=== PATIENT | male | born 1980 | race Native Hawaiian/Other Pacific Islander ===

== ENCOUNTER 2019-08-20 20:51 | Emergency (ER) | payer BC, OTHER ==
[2019-08-20 21:15] VITALS: BP 114/65; PULSE 72; RESP 16; TEMP 98.2
[2019-08-20] MEDS ORDERED: LIDOCAINE 1% INJ 10MG/ML (20 ML MDV) SQ ONE (22:17)
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
== END 2019-08-20 23:10 | disposition home or self-care (01) ==
LOC: EC 20:51
DX: S01.511A Laceration without foreign body of lip, initial encounter (principal); K08.89 Other specified disorders of teeth and supporting structures; Z53.20 Procedure and treatment not carried out because of patient's decision for unspecified reasons; Z87.891 Personal history of nicotine dependence; V86.55XA Driver of 3- or 4- wheeled all-terrain vehicle (ATV) injured in nontraffic accident, initial encounter; Y92.410 Unspecified street and highway as the place of occurrence of the external cause; Y93.55 Activity, bike riding
CPT/HCPCS: 99282; 12011; J2001

== ENCOUNTER 2020-01-22 13:19 | Emergency (ER) | payer OTHER ==
[2020-01-22 13:32] VITALS: BP 121/72; PULSE 73; TEMP 99.4
[2020-01-22 13:57] VITALS: RESP 18
[2020-01-22] MEDS ORDERED: ACETAMINOPHEN TAB 500 MG TAB PO STA (14:10)
--- NOTE | 2020-01-22 14:31 | XR ---
EXAMINATION TYPE: XR chest 2V DATE OF EXAM: 01/22/2020 COMPARISON: 10/24/2012 HISTORY: Cough, congestion, and fever TECHNIQUE: Frontal and lateral views of the chest are obtained. FINDINGS: There is no focal air space opacity, pleural effusion, or pneumothorax seen. The cardiac silhouette size is within normal limits. The osseous structures are intact. IMPRESSION: No acute cardiopulmonary process.
--- NOTE | 2020-01-22 14:43 | ED ---
General Adult HPI - General Chief complaint: Upper Respiratory Infection Stated complaint: head/chest congestion/cough Time Seen by Provider: 01/22/20 14:04 Source: patient, RN notes reviewed Mode of arrival: ambulatory Limitations: no limitations - History of Present Illness Initial comments: 39-year-old male with a past medical history of depression and anxiety presents to the emergency department for a chief complaint of cough. Patient has had a cough and fever for 3 days. Denies shortness of breath. Patient does admit to smoking, denies asthma or COPD history. States cough is nonproductive. Patient denies any domestic or foreign travel. No immunocompromising conditions. Patient has no other complaints at this time including shortness of breath, chest pain, abdominal pain, nausea or vomiting, headache, or visual changes. - Related Data Home Medications Medication Instructions Recorded Confirmed No Known Home Medications 08/20/19 08/20/19 Allergies Allergy/AdvReac Type Severity Reaction Status Date / Time No Known Allergies Allergy Verified 01/22/20 13:32 Review of Systems ROS Statement: Those systems with pertinent positive or pertinent negative responses have been documented in the HPI. ROS Other: All systems not noted in ROS Statement are negative. Past Medical History Past Medical History: No Reported History Additional Past Medical History / Comment(s): depression and anxiety History of Any Multi-Drug Resistant Organisms: None Reported Past Surgical History: No Surgical Hx Reported Past Psychological History: Anxiety, Depression Smoking Status: Former smoker Past Alcohol Use History: Occasional Past Drug Use History: None Reported General Exam Limitations: no limitations General appearance: alert, in no apparent distress Head exam: Present: atraumatic, normocephalic, normal inspection Eye exam: Present: normal appearance, PERRL, EOMI. Absent: scleral icterus, conjunctival injection, periorbital swelling ENT exam: Present: normal exam, normal oropharynx, mucous membranes moist, TM's normal bilaterally, normal external ear exam Neck exam: Present: normal inspection, full ROM. Absent: tenderness, meningismus, lymphadenopathy Respiratory exam: Present: normal lung sounds bilaterally. Absent: respiratory distress, wheezes, rales, rhonchi, stridor Cardiovascular Exam: Present: regular rate, normal rhythm, normal heart sounds. Absent: systolic murmur, diastolic murmur, rubs, gallop, clicks GI/Abdominal exam: Present: soft, normal bowel sounds. Absent: distended, tenderness, guarding, rebound, rigid Course Vital Signs 01/22/20 01/22/20 13:30 13:56 Temperature 99.4 F Pulse Rate 73 Respiratory 16 18 Rate Blood Pressure 121/72 O2 Sat by Pulse 97 Oximetry Medical Decision Making - Medical Decision Making Patient is well-appearing, sitting up in bed. Vitals are stable although he does have a low-grade fever of 100.3, given Tylenol. Has not had any antipyretics prior. Influenza A is detected. Chest x-ray is negative for acute cardiopulmonary process. Patient has had symptoms for 3 days and is therefore outside of the window for Tamiflu. I discussed Motrin and Tylenol for fever. Discussed follow-up with his doctor in one to 2 days. He will return for any worsening symptoms. He is otherwise able to return to work after he has 24 hours fever free. - Lab Data Lab Results 01/22/20 Range/Units 13:58 Influenza Type A RNA Detected H (Not Detectd) Influenza Type B (PCR) Not Detected (Not Detectd) Disposition Clinical Impression: Influenza A Disposition: HOME SELF-CARE Condition: Good Instructions (If sedation given, give patient instructions): Influenza (ED) Additional Instructions: Take Motrin and Tylenol alternating up to every 3 hours as needed for fever. You may also take [id number] cold and flu medications that make sure you are not taking too much Motrin or Tylenol if these are included. Drink plenty of fluids. Please follow up with primary care in 1-2 days. Please return to the emergency department for any worsening symptoms. Is patient prescribed a controlled substance at d/c from ED?: No Referrals: Isai Birch MD [Primary Care Provider] - 1-2 days Time of Disposition: 14:42
== END 2020-01-22 14:50 | disposition home or self-care (01) ==
LOC: EC 13:19
DX: J10.1 Influenza due to other identified influenza virus with other respiratory manifestations (principal); F17.200 Nicotine dependence, unspecified, uncomplicated
CPT/HCPCS: 71046; 87502; 99283

== ENCOUNTER 2023-05-02 23:36 | Emergency (ER) | payer OTHER ==
[2023-05-02 23:49] VITALS: TEMP 98.3
--- NOTE | 2023-05-03 01:35 | ED ---
Abdominal Pain HPI - General Chief Complaint: Abdominal Pain Stated Complaint: Painful Lump on Abdomen Time Seen by Provider: 05/03/23 01:02 Source: patient, RN notes reviewed, old records reviewed Mode of arrival: ambulatory Limitations: no limitations - History of Present Illness Initial Comments: Patient noticed a bump just below his belly button 2 days ago after running. No abdominal pain at this time. Did have some nausea but no vomiting. Normal bowel movements. No fevers. No previous surgeries or medical history. Does vape. Complaint: abdominal pain Location: periumbilical Radiation: none Severity scale (1-10): 0 Consistency: intermittent Associated Symptoms: denies other symptoms - Related Data Home Medications Medication Instructions Recorded Confirmed No Known Home Medications 08/20/19 08/20/19 Allergies Allergy/AdvReac Type Severity Reaction Status Date / Time No Known Allergies Allergy Verified 05/02/23 23:49 Review of Systems ROS Statement: Those systems with pertinent positive or pertinent negative responses have been documented in the HPI. ROS Other: All systems not noted in ROS Statement are negative. Past Medical History Past Medical History: No Reported History Additional Past Medical History / Comment(s): depression and anxiety History of Any Multi-Drug Resistant Organisms: None Reported Past Surgical History: No Surgical Hx Reported Past Psychological History: Anxiety, Depression Smoking Status: Former smoker, Vaper Past Alcohol Use History: Occasional Past Drug Use History: None Reported General Exam Limitations: no limitations General appearance: alert, in no apparent distress Head exam: Present: atraumatic Eye exam: Present: normal appearance ENT exam: Present: mucous membranes moist Neck exam: Present: full ROM. Absent: tenderness, meningismus Respiratory exam: Present: normal lung sounds bilaterally. Absent: respiratory distress, accessory muscle use Cardiovascular Exam: Present: regular rate GI/Abdominal exam: Present: soft, tenderness (mild), hernia (periumbilical). Absent: distended, guarding, rebound, rigid Extremities exam: Present: normal inspection, full ROM, normal capillary refill. Absent: tenderness Neurological exam: Present: alert, oriented X3 Psychiatric exam: Present: normal affect, normal mood Skin exam: Present: warm, dry, normal color. Absent: cyanosis, diaphoretic, petechiae, pallor Course Vital Signs 05/02/23 05/03/23 23:45 03:41 Temperature 98.3 F Pulse Rate 64 43 L Respiratory 20 12 Rate Blood Pressure 129/78 110/70 O2 Sat by Pulse 98 97 Oximetry Medical Decision Making - Medical Decision Making Was pt. sent in by a medical professional or institution (, [facility], BLOWING ENGINEER, urgent care, hospital, or residential...) When possible be specific @ -No Did you speak to anyone other than the patient for history (EMS, parent, family, police, friend...)? What history was obtained from this source @ -No Did you review nursing and triage notes (agree or disagree)? Why? @ -I reviewed and agree with nursing and triage notes Were old charts reviewed (outside hosp., previous admission, EMS record, old EKG, old radiological studies, urgent care reports/EKG's, residential records)? Report findings @ -No old charts were reviewed Differential Diagnosis (chest pain, altered mental status, abdominal pain women, abdominal pain men, vaginal bleeding, weakness, fever, dyspnea, syncope, headache, dizziness, GI bleed, back pain, seizure, CVA, palpatations, mental health, musculoskeletal)? @ -Differential Abdominal Pain Men: Appendicitis, cholecystitis, diverticulosis, ischemic bowel, pancreatitis, hepatitis, UTI, gastroenteritis, AAA, incarcerated hernia, bowel obstruction, constipation, inflammatory bowel, hepatitis, peptic ulcer disease, splenic infarction, perforated viscus, testicular torsion, this is not meant to be an all-inclusive list EKG interpreted by me (3pts min.). @ -n/a X-rays interpreted by me (1pt min.). @ -yes KUB x-ray interpreted by me shows no evidence of obstruction. CT interpreted by me (1pt min.). @ -None done U/S interpreted by me (1pt. min.). @ -None done What testing was considered but not performed or refused? (CT, X-rays, U/S, labs)? Why? @ -None What meds were considered but not given or refused? Why? @ -None Did you discuss the management of the patient with other professionals (professionals i.e. [facility] Avalos, BLOWING ENGINEER, lab, RT, psych nurse, social worker assistant, screwhead stoner and polisher, teacher, risk officer, mental health case manager)? Give summary @ -No Was smoking cessation discussed for >3mins.? @ -yes Was critical care preformed (if so, how long)? @ -No Were there social determinants of health that impacted care today? How? (Homelessness, low income, unemployed, alcoholism, drug addiction, transportation, low edu. Level, literacy, decrease access to med. care, intermediate, rehab)? @ -No Was there de-escalation of care discussed even if they declined (Discuss DNR or withdrawal of care, Hospice)? DNR status @ -No What co-morbidities impacted this encounter? (DM, HTN, Smoking, COPD, CAD, Cancer, CVA, ARF, Chemo, Hep., AIDS, mental health diagnosis, sleep apnea, morbid obesity)? @ -Anxiety, depression, smoker Was patient admitted / discharged? Hospital course, mention meds given and route, prescriptions, significant lab abnormalities, going to OR and other pertinent info. @ -Discharged Patient noticed a bump just below his belly button 2 days ago after running. No abdominal pain at this time. Did have some nausea but no vomiting. Normal bowel movements. No fevers. No previous surgeries or medical history. On physical exam abdomen soft and nontender. There is a small periumbilical hernia that is minimally tender. Radiologist interpretation nonspecific nonobstructive bowel gas pattern may represent normal variation or mild enteritis. Patient directed to return to the emergency room with any new or concerning symptoms. Strict return parameters were discussed. Given referral to surgery and directed to follow up with his primary care doctor this week. He is agreeable to this plan of care. Case discussed with Dr. Sethi. Undiagnosed new problem with uncertain prognosis? @ -No Drug Therapy requiring intensive monitoring for toxicity (Heparin, Nitro, Insulin, Cardizem)? @ -No Were any procedures done? @ -No Diagnosis/symptom? @ -Umbilical hernia Acute, or Chronic, or Acute on Chronic? @ -Acute Uncomplicated (without systemic symptoms) or Complicated (systemic symptoms)? @ -Uncomplicated Side effects of treatment? @ -No Exacerbation, Progression, or Severe Exacerbation? @ -No Poses a threat to life or bodily function? How? (Chest pain, [place], [place], pneumonia, PE, COPD, DKA, ARF, appy, cholecystitis, CVA, Diverticulitis, Homicidal, Suicidal, threat to staff... and all critical care pts) @ -No Disposition Clinical Impression: Umbilical hernia Disposition: HOME SELF-CARE Condition: Good Instructions (If sedation given, give patient instructions): Umbilical Hernia (ED) Additional Instructions: Follow-up with your primary care doctor and the surgeon regarding umbilical hernia. Return to the emergency room with any new or concerning symptoms including increased pain, inability to pass gas or persistent nausea vomiting. Is patient prescribed a controlled substance at d/c from ED?: No Referrals: None,Stated [Primary Care Provider] - 1-2 days Leilani Avilez MD [STAFF PHYSICIAN] - 1-2 days Time of Disposition: 03:24
--- NOTE | 2023-05-03 03:30 | XR ---
EXAM: XR Abdomen, 1 View CLINICAL HISTORY: pain TECHNIQUE: Frontal supine view of the abdomen/pelvis. COMPARISON: No relevant prior studies available. FINDINGS: Intraperitoneal space: No pneumoperitoneum underlying the hemidiaphragms.. Gastrointestinal tract: Nonspecific slightly prominent small bowel gas pattern in the central abdomen without dilation. No air-fluid levels. Mild stool burden. Bones/joints: Unremarkable. IMPRESSION: Nonspecific, nonobstructive bowel gas pattern may represent normal variation or mild enteritis.
[2023-05-03 03:43] VITALS: BP 110/70; PULSE 43; RESP 12
== END 2023-05-03 03:41 | disposition home or self-care (01) ==
LOC: EC 23:36
DX: K42.9 Umbilical hernia without obstruction or gangrene (principal); F17.290 Nicotine dependence, other tobacco product, uncomplicated; Z86.59 Personal history of other mental and behavioral disorders
CPT/HCPCS: 74018; 99284

== ENCOUNTER 2024-08-18 13:48 | Emergency (ER) | payer OTHER ==
[2024-08-18 14:03] VITALS: RESP 18
--- NOTE | 2024-08-18 16:03 | ED ---
Abdominal Pain HPI - General Chief Complaint: Abdominal Pain Stated Complaint: abd pain Time Seen by Provider: 08/18/24 16:00 Source: patient, RN notes reviewed Mode of arrival: ambulatory Limitations: no limitations - History of Present Illness Initial Comments: 43-year-old male presenting for epigastric pain x 1 week. States he was at the gym when he noticed a "lump" in the middle of his upper abdomen worse with movement. He states it is a dull, intermittent pain. He does have a history of a hernia in the lower abdomen and states this feels similar. Denies any medical conditions, denies any previous abdominal surgeries. Denies any other symptoms such as nausea, vomiting, fever, constipation, diarrhea. - Related Data Home Medications Medication Instructions Recorded Confirmed Dextroamphetamine/Amphetamine 20 mg PO TID PRN 08/18/24 08/18/24 [Adderall] Allergies Allergy/AdvReac Type Severity Reaction Status Date / Time No Known Allergies Allergy Verified 08/18/24 16:26 Review of Systems ROS Statement: Those systems with pertinent positive or pertinent negative responses have been documented in the HPI. ROS Other: All systems not noted in ROS Statement are negative. Past Medical History Past Medical History: No Reported History Additional Past Medical History / Comment(s): depression and anxiety History of Any Multi-Drug Resistant Organisms: None Reported Past Surgical History: No Surgical Hx Reported Past Psychological History: Anxiety, Depression Smoking Status: Former smoker, Vaper Past Alcohol Use History: Occasional Past Drug Use History: None Reported General Exam Limitations: no limitations General appearance: alert, in no apparent distress Head exam: Present: atraumatic, normocephalic, normal inspection Eye exam: Present: normal appearance, PERRL, EOMI. Absent: scleral icterus, conjunctival injection, periorbital swelling ENT exam: Present: normal exam, mucous membranes moist Respiratory exam: Present: normal lung sounds bilaterally. Absent: respiratory distress, wheezes, rales, rhonchi, stridor Cardiovascular Exam: Present: regular rate, normal rhythm, normal heart sounds. Absent: systolic murmur, diastolic murmur, rubs, gallop, clicks GI/Abdominal exam: Present: soft, normal bowel sounds, other (Palpable xiphoid process, no overlying skin changes). Absent: distended, tenderness, guarding, rebound, rigid Neurological exam: Present: alert, oriented X3 Psychiatric exam: Present: normal affect, normal mood Skin exam: Present: warm, dry, intact, normal color. Absent: rash Course Vital Signs 08/18/24 13:59 Temperature 98.4 F Pulse Rate 69 Respiratory 18 Rate Blood Pressure 126/73 O2 Sat by Pulse 99 Oximetry Medical Decision Making - Medical Decision Making Was pt. sent in by a medical professional or institution (, HENRY, TECHNICAL SALES SUPPORT MANAGER, urgent care, hospital, or fdc...) When possible be specific @ -No Did you speak to anyone other than the patient for history (EMS, parent, family, police, friend...)? What history was obtained from this source @ -No Did you review nursing and triage notes (agree or disagree)? Why? @ -I reviewed and agree with nursing and triage notes Were old charts reviewed (outside hosp., previous admission, EMS record, old EKG, old radiological studies, urgent care reports/EKG's, fdc records)? Report findings @ -No old charts were reviewed Differential Diagnosis (chest pain, altered mental status, abdominal pain women, abdominal pain men, vaginal bleeding, weakness, fever, dyspnea, syncope, headache, dizziness, GI bleed, back pain, seizure, CVA, palpatations, mental health, musculoskeletal)? @ -Differential Abdominal Pain Men: Appendicitis, cholecystitis, diverticulosis, ischemic bowel, pancreatitis, hepatitis, UTI, gastroenteritis, AAA, incarcerated hernia, bowel obstruction, constipation, inflammatory bowel, hepatitis, peptic ulcer disease, splenic infarction, perforated viscus, testicular torsion, this is not meant to be an all-inclusive list EKG interpreted by me (3pts min.). @ -As above X-rays interpreted by me (1pt min.). @ -None done CT interpreted by me (1pt min.). @ -CT revealed small hypoechoic density on left adrenal gland may be angiomyolipoma, no abnormality to account for epigastric pain U/S interpreted by me (1pt. min.). @ -None done What testing was considered but not performed or refused? (CT, X-rays, U/S, labs)? Why? @ -None What meds were considered but not given or refused? Why? @ -None Did you discuss the management of the patient with other professionals (professionals i.e. , HENRY, TECHNICAL SALES SUPPORT MANAGER, lab, RT, psych nurse, social service liaison, systems program manager, teacher, mobile patrol officer, case management associate)? Give summary @ -No Was smoking cessation discussed for >3mins.? @ -No Was critical care preformed (if so, how long)? @ -No Were there social determinants of health that impacted care today? How? (Homelessness, low income, unemployed, alcoholism, drug addiction, tr ansportation, low edu. Level, literacy, decrease access to med. care, retirement, rehab)? @ -No Was there de-escalation of care discussed even if they declined (Discuss DNR or withdrawal of care, Hospice)? DNR status @ -No What co-morbidities impacted this encounter? (DM, HTN, Smoking, COPD, CAD, Cancer, CVA, ARF, Chemo, Hep., AIDS, mental health diagnosis, sleep apnea, morbid obesity)? @ -None Was patient admitted / discharged? Hospital course, mention meds given and route, prescriptions, significant lab abnormalities, going to OR and other pertinent info. @ -Discharged. This is a 43-year-old male presenting with epigastric pain x 1 week that he describes as a "lump" in the middle of his epigastric region worse with movement. Denies chest pain, shortness of breath, fevers, vomiting. Vital signs are within acceptable limits. There is a palpable xiphoid process on examination, no overlying skin changes. Lab work including CBC, CMP, lactic acid, amylase, lipase remarkable for lipase 662. CT abdomen reveals small hypoechoic density on the left adrenal gland likely angiomyolipoma, no abn ormality to account for epigastric pain. Patient was updated on results. Advised to follow-up with PCP regarding angiomyolipoma. Symptoms are likely due to xiphoidalgia. Supportive care discussed including NSAIDs. Return precautions discussed and patient is agreeable to plan. Case was discussed with my ED attending Dr. Carmona. Stable at time of discharge. Undiagnosed new problem with uncertain prognosis? @ -No Drug Therapy requiring intensive monitoring for toxicity (Heparin, Nitro, Ins ulin, Cardizem)? @ -No Were any procedures done? @ -No Diagnosis/symptom? @ -Xiphoidalgia Acute, or Chronic, or Acute on Chronic? @ -Acute Uncomplicated (without systemic symptoms) or Complicated (systemic symptoms)? @ -Uncomplicated Side effects of treatment? @ -No Exacerbation, Progression, or Severe Exacerbation? @ -No Poses a threat to life or bodily function? How? (Chest pain, [place], [place], pneumonia, PE, COPD, DKA, ARF, appy, cholecystitis, CVA, Diverticulitis, Homicidal, Suicidal, threat to staff... and all critical care pts) @ -No - Lab Data Result diagrams: 08/18/24 15:58 08/18/24 15:58 Lab Results 08/18/24 08/18/24 08/18/24 Range/Units 15:58 15:58 15:58 WBC 7.2 (3.8-10.6) k/uL RBC 5.00 (4.30-5.90) m/uL Hgb 16.1 (13.0-17.5) gm/dL Hct 48.2 (39.0-53.0) % MCV 96.4 (80.0-100.0) fL MCH 32.1 (25.0-35.0) pg MCHC 33.3 (31.0-37.0) g/dL RDW 13.0 (11.5-15.5) % Plt Count 230 (150-450) k/uL MPV 7.7 Neutrophils % 55 % Lymphocytes % 28 % Monocytes % 10 % Eosinophils % 4 % Basophils % 1 % Neutrophils # 4.0 (1.3-7.7) k/uL Lymphocytes # 2.0 (1.0-4.8) k/uL Monocytes # 0.7 (0-1.0) k/uL Eosinophils # 0.3 (0-0.7) k/uL Basophils # 0.1 (0-0.2) k/uL Sodium 138 (137-145) mmol/L Potassium 4.4 (3.5-5.1) mmol/L Chloride 107 (98-107) mmol/L Carbon Dioxide 28 (22-30) mmol/L Anion Gap 3 mmol/L BUN 18 (9-20) mg/dL Creatinine 0.93 (0.66-1.25) mg/dL Est GFR (CKD-EPI)AfAm >90 (>60 ml/min/1.73 sqM) Est GFR (CKD-EPI)NonAf >90 (>60 ml/min/1.73 sqM) Glucose 96 (74-99) mg/dL Plasma Lactic Acid Raffi 0.9 (0.7-2.0) mmol/L Calcium 9.5 (8.4-10.2) mg/dL Total Bilirubin 0.9 (0.2-1.3) mg/dL AST 33 (17-59) U/L ALT 32 (4-49) U/L Alkaline Phosphatase 79 (38-126) U/L Total Protein 7.2 (6.3-8.2) g/dL Albumin 4.4 (3.5-5.0) g/dL Amylase 110 (30-110) U/L Lipase 662 H (23-300) U/L - EKG Data -: EKG Interpreted by Me EKG Comments: EKG reveals sinus bradycardia with no ST changes. Ventricular rate 50 bpm, AL interval 161, QRS duration 101, QT/QTc 395/370 Disposition Clinical Impression: Xyphoidalgia Disposition: HOME SELF-CARE Condition: Stable Instructions (If sedation given, give patient instructions): Costochondritis (ED) Additional Instructions: You may take anti-inflammatories such as ibuprofen/Motrin as needed for pain. Xiphoidalgia is a condition that will typically resolve on its own with time. 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 Please return to the Emergency Department if symptoms worsen or any other concerns. Is patient prescribed a controlled substance at d/c from ED?: No Referrals: Jeromy Sweeney MD [Primary Care Provider] - 1-2 days Time of Disposition: 17:27
--- NOTE | 2024-08-18 16:39 | CT ---
EXAMINATION TYPE: CT abdomen pelvis wo con DATE OF EXAM: 08/18/2024 COMPARISON: 05/16/2016 INDICATION: Epigastric pain. DLP: 608.1 mGycm, Automated exposure control for dose reduction was used. CONTRAST: 0 mL of Isovue 300. Study performed without Oral Contrast TECHNIQUE: Axial images were obtained from above the diaphragm to the pubic rami in the axial plane a t 5 mm thick sections. Reconstructed images are reviewed on the computer in the coronal plane. FINDINGS: Limited CT sections are obtained the lung bases. The lung bases are clear. CT ABDOMEN: Liver: Normal Spleen: Normal Pancreas: Normal Adrenal glands: Left adrenal gland is of February surgery measuring 1.5 cm on the posterior limb le ft adrenal gland. Right adrenal gland appears normal. Gallbladder: Normal Kidneys: No masses are evident. No hydronephrosis is present. No cysts are present. No renal stone s are evident. Aorta: Vascular calcification is within the aorta. Inferior vena cava: Normal. CT PELVIS: Loops of bowel within the abdomen and pelvis are normal. There are loops of bowel which are incom pletely distended or lack oral contrast limiting their evaluation. Appendix: Normal as visualized. Urinary bladder: Normal. Genitourinary structures: Prostate appears unremarkable. Osseous structures: No suspicious lytic or sclerotic lesions. IMPRESSION: 1. Small hypoechoic density on the left adrenal gland may be angiomyolipoma. 2. No suspicious abnormality account for epigastric pain X-Ray Regine Arroyo, Workstation: [facility], 08/18/2024 4:37 PM
[2024-08-18 16:42] LABS: Basophils # (A) 0.1 k/uL (0-0.2); Basophils % (A) 1 %; Eosinophils # (A) 0.3 k/uL (0-0.7); Eosinophils % (A) 4 %; HCT 48.2 % (39.0-53.0); HGB 16.1 gm/dL (13.0-17.5); Lymphocytes % (A) 28 %; MCH 32.1 pg (25.0-35.0); MCHC 33.3 g/dL (31.0-37.0); MCV 96.4 fL (80.0-100.0); Mean Platelet Volume 7.7; Monocytes # (A) 0.7 k/uL (0-1.0); Monocytes % (A) 10 %; Neutrophils % (A) 55 %; Platelet Count 230 k/uL (150-450); WBC 7.2 k/uL (3.8-10.6)
[2024-08-18 16:45] LABS: ALT 32 U/L (4-49); AST 33 U/L (17-59); African American GFR (CKD) >90 (>60 ml/min/1.73 sqM); Albumin 4.4 g/dL (3.5-5.0); Alkaline Phosphatase 79 U/L (38-126); Amylase 110 U/L (30-110); Anion Gap 3 mmol/L; Blood Urea Nitrogen 18 mg/dL (9-20); Calcium 9.5 mg/dL (8.4-10.2); Carbon Dioxide 28 mmol/L (22-30); Chloride 107 mmol/L (98-107); Glucose 96 mg/dL (74-99); Lipase 662 U/L (23-300); Non-African American GFR(CKD) >90 (>60 ml/min/1.73 sqM); Potassium 4.4 mmol/L (3.5-5.1); Sodium 138 mmol/L (137-145); Total Bilirubin 0.9 mg/dL (0.2-1.3); Total Protein 7.2 g/dL (6.3-8.2)
[2024-08-18 17:57] VITALS: BP 131/82; PULSE 71; TEMP 98.2
== END 2024-08-18 17:57 | disposition home or self-care (01) ==
LOC: EC 13:48
CPT/HCPCS: 36415; 74176; 80053; 82150; 83605; 83690; 85025; 93005; 99284

== ENCOUNTER 2025-04-01 16:33 | Emergency (ER) | payer OTHER ==
[2025-04-01 16:36] VITALS: RESP 18
--- NOTE | 2025-04-01 16:47 | ED ---
Wound/Laceration HPI - General Chief Complaint: Wound/Laceration Stated Complaint: L hand laceration Time Seen by Provider: 04/01/25 16:42 Source: patient, RN notes reviewed Mode of arrival: ambulatory Limitations: no limitations - History of Present Illness Initial Comments: This is a 44-year-old male presenting with left ring finger laceration occurring x 20 minutes ago. Patient states he was pulling glass from a window frame when he accidentally cut his finger with subsequent control bleeding. States tetanus vaccination is up-to-date. Denies other significant injuries or retained foreign body. Onset/Timin -: minutes(s) Extremity Location: Left: Hand Patient Tetanus UTD: Yes Context: accidental Associated Symptoms: none Treatments Prior to Arrival: bandage - Related Data Home Medications Medication Instructions Recorded Confirmed Dextroamphetamine/Amphetamine 20 mg PO TID PRN 08/18/24 08/18/24 [Adderall] Previous Rx's Medication Instructions Recorded Cephalexin [Keflex] 500 mg PO Q6HR 1 Days #12 cap 04/01/25 Allergies Allergy/AdvReac Type Severity Reaction Status Date / Time No Known Allergies Allergy Verified 04/01/25 16:36 Review of Systems ROS Statement: Those systems with pertinent positive or pertinent negative responses have been documented in the HPI. ROS Other: All systems not noted in ROS Statement are negative. Past Medical History Past Medical History: No Reported History Additional Past Medical History / Comment(s): depression and anxiety History of Any Multi-Drug Resistant Organisms: None Reported Past Surgical History: No Surgical Hx Reported Past Psychological History: Anxiety, Depression Smoking Status: Former smoker, Vaper Past Alcohol Use History: Occasional Past Drug Use History: None Reported General Exam Limitations: no limitations General appearance: alert, in no apparent distress Head exam: Present: atraumatic, normocephalic, normal inspection Eye exam: Present: normal appearance, PERRL, EOMI. Absent: scleral icterus, conjunctival injection, periorbital swelling ENT exam: Present: normal exam, mucous membranes moist Neck exam: Present: normal inspection. Absent: tenderness, meningismus, lymphadenopathy Respiratory exam: Present: normal lung sounds bilaterally. Absent: respiratory distress, wheezes, rales, rhonchi, stridor Cardiovascular Exam: Present: regular rate, normal rhythm, normal heart sounds. Absent: systolic murmur, diastolic murmur, rubs, gallop, clicks GI/Abdominal exam: Present: soft, normal bowel sounds. Absent: distended, tenderness, guarding, rebound, rigid Extremities exam: Present: full ROM, normal capillary refill, other (1 cm vertical laceration on the ulnar aspect of distal phalanx of left fourth digit with capillary bleeding. No obvious foreign body, surrounding erythema, warmth, tenderness). Absent: tenderness, pedal edema, joint swelling, calf tenderness Back exam: Present: normal inspection Neurological exam: Present: alert, oriented X3, CN II-XII intact Psychiatric exam: Present: normal affect, normal mood Skin exam: Present: warm, dry, intact, normal color. Absent: rash Course Vital Signs 04/01/25 04/01/25 16:34 17:29 Temperature 97.9 F 98 F Pulse Rate 78 72 Respiratory 18 18 Rate Blood Pressure 146/97 132/86 O2 Sat by Pulse 98 98 Oximetry Medical Decision Making - Medical Decision Making Was pt. sent in by a medical professional or institution (, PA, CHARCOAL KILN BURNER, urgent care, hospital, or senior living...) When possible be specific @ -No Did you speak to anyone other than the patient for history (EMS, parent, family, police, friend...)? What history was obtained from this source @ -No Did you review nursing and triage notes (agree or disagree)? Why? @ -I reviewed and agree with nursing and triage notes Were old charts reviewed (outside hosp., previous admission, EMS record, old EKG, old radiological studies, urgent care reports/EKG's, senior living records)? Report findings @ -No old charts were reviewed Differential Diagnosis (chest pain, altered mental status, abdominal pain women, abdominal pain men, vaginal bleeding, weakness, fever, dyspnea, syncope, hea dache, dizziness, GI bleed, back pain, seizure, CVA, palpatations, mental health, musculoskeletal)? @ -Differential Musculoskeletal Muscular strain, contusion, ligament sprain, fracture, arthritis, septic arthritis, bursitis, cellulitis, muscle spasm, nerve compression, DVT, arterial occlusion, herpes zoster, electrolyte abnormality, tumor.... This is not meant to be in all inclusive list EKG interpreted by me (3pts min.). @ -Not done X-rays interpreted by me (1pt min.). @ -None done CT interpreted by me (1pt min.). @ -None done U/S interpreted by me (1pt. min.). @ -None done What testing was considered but not performed or refused? (CT, X-rays, U/S, labs)? Why? @ -None What meds were considered but not given or refused? Why? @ -None Did you discuss the management of the patient with other professionals (professionals i.e. Dr., PA, CHARCOAL KILN BURNER, lab, RT, psych nurse, social welfare research worker, hr intern, teacher, occupational medicine officer, child support case officer)? Give summary @ -No Was smoking cessation discussed for >3mins.? @ -No Was critical care preformed (if so, how long)? @ -No Were there social determinants of health that impacted care today? How? (Homelessness, low income, unemployed, alcoholism, drug addiction, soto sportation, low edu. Level, literacy, decrease access to med. care, group home, rehab)? @ -No Was there de-escalation of care discussed even if they declined (Discuss DNR or withdrawal of care, Hospice)? DNR status @ -No What co-morbidities impacted this encounter? (DM, HTN, Smoking, COPD, CAD, Cancer, CVA, ARF, Chemo, Hep., AIDS, mental health diagnosis, sleep apnea, morbid obesity)? @ -None Was patient admitted / discharged? Hospital course, mention meds given and route, prescriptions, significant lab abnormalities, going to OR and other pertinent info. @ -Laceration cleaned copiously with a bacterial soap and normal saline. Laceration edges aligned and adhered with Dermabond. Patient provided initial dose of p.o. Keflex with remaining regimen sent to patient's pharmacy. Advised to leave adhesive in place for 7 days if possible. Discussed patient with Dr. Diaz. Undiagnosed new problem with uncertain prognosis? @ -No Drug Therapy requiring intensive monitoring for toxicity (Heparin, Nitro, Insulin, Cardizem)? @ -No Were any procedures done? @ -Dermabond used to adhere laceration edges with adhesive. Diagnosis/symptom? @ -Laceration Acute, or Chronic, or Acute on Chronic? @ -Acute Uncomplicated (without systemic symptoms) or Complicated (systemic symptoms)? @ -Uncomplicated Side effects of treatment? @ -No Exacerbation, Progression, or Severe Exacerbation? @ -No Poses a threat to life or bodily function? How? (Chest pain, [place], [place], pneumonia, PE, COPD, DKA, ARF, appy, cholecystitis, CVA, Diverticulitis, Homicidal, Suicidal, threat to staff... and all critical care pts) @ -No Disposition Clinical Impression: Laceration Disposition: HOME SELF-CARE Condition: Good Instructions (If sedation given, give patient instructions): Skin Adhesive Care (ED) Additional Instructions: Keep adhesive covered with Band-Aid while outdoors and while sleeping. Allow to remain in place for 7 days prior to removal. Prescriptions: Cephalexin [Keflex] 500 mg PO Q6HR 1 Days #12 cap Is patient prescribed a controlled substance at d/c from ED?: No Referrals: Jeromy Sweeney MD [Primary Care Provider] - 1-2 days Time of Disposition: 17:35
[2025-04-01] MEDS: TOPICAL SKIN ADHESIVE 1 EACH AMP TOPICAL ONE (16:49)
[2025-04-01] MEDS: CEPHALEXIN 500 MG CAP PO STA (16:50)
[2025-04-01 17:30] VITALS: BP 132/86; PULSE 72; TEMP 98
== END 2025-04-01 17:29 | disposition home or self-care (01) ==
LOC: EC 16:33
DX: S61.215A Laceration without foreign body of left ring finger without damage to nail, initial encounter (principal); F17.290 Nicotine dependence, other tobacco product, uncomplicated; W25.XXXA Contact with sharp glass, initial encounter
CPT/HCPCS: 99282